=== PATIENT | female | born 1990 | race American Indian/Alaskan Native ===

== ENCOUNTER 2021-01-11 10:52 | Inpatient (IN) | payer BC ==
[2021-01-11] MEDS ORDERED: LACTATED RINGERS 1,000 ML IV SCH ×2 (11:45→12:45)
[2021-01-11] MEDS ORDERED: ACETAMINOPHEN 500 MG TAB PO ONE (11:48)
[2021-01-11 12:14] LABS: Basophils % (Auto) 0.4 % (0.0-1.8); Eosinophils # (Auto) 0.1 K/mm3 (0.0-0.4); Eosinophils % (Auto) 0.6 % (0.0-4.3); Hematocrit 33.9 % (30.3-42.9); Hemoglobin 11.2 gm/dl (10.1-14.3); Lymphocytes # (Auto) 1.9 K/mm3 (1.2-5.4); Lymphocytes % (Auto) 20.5 % (13.4-35.0); Mean Corpuscular HGB Conc 33 % (30-34); Mean Corpuscular Volume 80 fl (79-97); Monocytes % (Auto) 11.5 % (0.0-7.3); Platelet Count 391 K/mm3 (140-440); Red Blood Count 4.23 M/mm3 (3.65-5.03); Red Cell Distribution Width 15.7 % (13.2-15.2)
[2021-01-11] MEDS ORDERED: METHYLERGONOVINE MALEATE 0.2 MG/ML VIAL IM PRN (12:32)
[2021-01-11] MEDS ORDERED: OXYTOCIN 10 UNIT/1 ML INJ IM PRN (12:32)
[2021-01-11] MEDS ORDERED: MINERAL OIL 30 ML ORAL LIQD PO PRN (12:32)
[2021-01-11] MEDS ORDERED: LOPERAMIDE 2 MG CAP PO PRN (12:32)
[2021-01-11] MEDS ORDERED: ePHEDrine SULFATE 50 MG/1 ML INJ IV PRN ×2 (12:32→16:30)
[2021-01-11] MEDS ORDERED: NALOXONE 0.4 MG/1 ML INJ IV PRN ×2 (12:32→18:42)
[2021-01-11] MEDS ORDERED: LIDOCAINE (2%) 20 MG/1 ML VIAL 20 ML MDV INFILTRATI ONE (12:32)
[2021-01-11] MEDS ORDERED: TERBUTALINE 1 MG/1 ML INJ SUB-Q PRN (12:32)
[2021-01-11] MEDS ORDERED: fentaNYL 100 MCG/2 ML INJ IV PRN (12:32)
[2021-01-11] MEDS ORDERED: CARBOPROST TROMETHAMINE 250 MCG/1 ML INJ IM PRN (12:32)
[2021-01-11] MEDS ORDERED: ACETAMINOPHEN 325 MG TAB PO PRN (12:32)
[2021-01-11] MEDS ORDERED: PROMETHAZINE 25 MG TAB PO PRN (12:32)
[2021-01-11 12:45] LABS: Uric Acid 5.3 mg/dL (3.5-7.6)
[2021-01-11] MEDS ORDERED: ACETAMINOPHEN 500 MG TAB PO PRN (12:48)
[2021-01-11 12:53] LABS: Alanine Aminotransferase < 5 units/L (7-56)
--- NOTE | 2021-01-11 12:53 | History and Physical Report ---
History of Present Illness Date of examination: 01/11/21 (Contractions) Date of admission: 01/11/2021 Chief complaint: Contractions that started 2 hours ago, now elevated blood pressures. History of present illness: Pt presented to triage with c/o ctxs. Her cervical exam was 2/80/-2. She was noted to also have elevated blood pressures. The highest blood pressure in triage being 184/97. EDC Confirmation: 01/12/2021 Gestational Age: 39.6 wks on admission Past History : 2 Term Births: 0 Premature Births: 0 Living Children: 0 Para: 0 Mult. Births: 0 Prev : 0 Prev. attempt? 0 Aborta: 1 Elect. Ab: 1 Spont. 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 Past Surgical History Abnormal PAP: negative Family Hx: Htn- mother thyroid dx - mother Social Hx: Single Works for [employer] Infection History HIV Risk Eval: no Genetic History Congenital Heart Defect: Mom: no Dad: no Little Disease: Mom: no Dad: no Thalassemia Mom: no Dad: no Neural Tube Defect Mom: no Dad: no Down's Syndrome Mom: no Dad: no Rod-Sachs Mom: yes Dad: unknown Comments: FOC has not been tested Sickle Cell Disease/Trait Mom: yes Dad: unknown Comments: FOC has not been tested Hemophilia Mom: no Dad: no Muscular Dystrophy Mom: no Dad: no Cystic Fibrosis Mom: no Dad: no Lares Chorea Mom: no Dad: no Mental Retardation Mom: no Dad: no Fragile X Mom: no Dad: no Other Genetic/Chromosomal Disorder Mom: no Dad: no Child w/other defect Mom: no Dad: no Enviromental Exposures Xray Exposure: no Medication, drug, or alcohol use since LMP: no Chemical/Other Exposure: no Exposure to Cat Liter: no Hx of Parvovirus (Fifth Disease): no Occupational Exposure to Children: none Current Allergies: No known allergies Past History Past Medical History: other (Bipolar, sickle cell disease/trait) Past Surgical History: no surgical history Family/Genetic History: hypertension Social history: no significant social history - Obstetrical History Expected Date of Delivery: 01/12/21 Actual Gestation: 40 Week(s) 0 Day(s) : 2 Para: 0 Hx # Term Pregnancies: 0 Number of Pregnancies: 0 Spontaneous Abortions: 0 Induced : 1 Number of Living Children: 0 Medications and Allergies Allergies Allergy/AdvReac Type Severity Reaction Status Date / Time No Known Allergies Allergy Unverified 01/11/21 12:03 Home Medications Medication Instructions Recorded Confirmed Last Taken Type Docusate Sodium [Colace] 100 mg PO BID PRN #60 capsule 01/11/21 Unknown Rx Ferrous Sulfate [Feosol 325 MG tab] 325 mg PO QDAY #60 tablet 01/11/21 Unknown Rx Ibuprofen [Motrin 800 MG tab] 800 mg PO Q8HR PRN #30 tablet 01/11/21 Unknown Rx Lidocain2.5%/Prilocai2.5% [Emla] 2 gm TP ONCE #1 tube 01/11/21 Unknown Rx oxyCODONE /ACETAMINOPHEN [Percocet 1 tab PO Q4HR #30 tab 01/11/21 Unknown Rx 5/325] Active Meds: Active Medications Acetaminophen (Acetaminophen 500 Mg Tab) 1,000 mg PO Q6H PRN PRN Reason: Pain, Mild (1-3) Carboprost Tromethamine (Carboprost Tromethamine 250 Mcg/1 Ml Inj) 250 mcg IM ONCE PRN PRN Reason: Uterine Bleeding Ephedrine Sulfate (Ephedrine Sulfate 50 Mg/1 Ml Inj) 10 mg IV Q2M PRN PRN Reason: Hypotension Fentanyl (Fentanyl 100 Mcg/2 Ml Inj) 100 mcg IV Q2H PRN PRN Reason: Pain,Severe (7-10) LABOR PAIN Lactated Ringer's (Lactated Ringers) 1,000 mls @ 150 mls/hr IV DIRECT [place] Last Admin: 01/11/21 12:13 Dose: 150 mls/hr Documented by: Lactated Ringer's (Lactated Ringers) 1,000 mls @ 125 mls/hr IV DIRECT [place] Oxytocin/Sodium Chloride (Pitocin/Ns 30 Unit/500ml) 30 units in 500 mls @ 2 mls/hr IV TITR [place]; Protocol Oxytocin/Sodium Chloride (Pitocin/Ns 30 Unit/500ml) 30 units in 500 mls @ 40 mls/hr IV TITR [place]; Protocol Loperamide HCl (Loperamide 2 Mg Cap) 2 mg PO ONCE PRN PRN Reason: give with Hemabate Methylergonovine Maleate (Methylergonovine Maleate 0.2 Mg/Ml Vial) 0.2 mg IM ONCE PRN PRN Reason: Uterine Bleeding Mineral Oil (Mineral Oil 30 Ml Oral Liqd) 30 ml PO QHS PRN PRN Reason: Constipation Naloxone HCl (Naloxone 0.4 Mg/1 Ml Inj) 0.1 mg IV Q2MIN PRN PRN Reason: Res Rate </= 8 or 02 SAT < 92% Oxytocin (Oxytocin 10 Unit/1 Ml Inj) 10 unit IM ONCE PRN PRN Reason: Uterine Bleeding Promethazine HCl (Promethazine 25 Mg Tab) 25 mg PO Q6H PRN PRN Reason: Nausea And Vomiting Terbutaline Sulfate (Terbutaline 1 Mg/1 Ml Inj) 0.25 mg SUB-Q ONCE PRN PRN Reason: Hyperstimulation/Hypertonicity Review of Systems All systems: negative - Vital Signs Vital signs: Vital Signs Temp Pulse Resp BP 99.2 F 96 H 16 140/88 01/11/21 11:24 01/11/21 11:24 01/11/21 11:24 01/11/21 11:24 Temp Pulse Resp BP Pulse Ox 99.2 F 93 H 16 184/97 01/11/21 11:24 01/11/21 12:27 01/11/21 11:24 01/11/21 12:27 Pt denies MCCARTNEY, blurred vision, spots before her eyes, chest pain, shortness of breath, and upper abdominal pain. - Physical Exam Breasts: Positive: deferred Cardiovascular: Regular rate Lungs: Positive: Normal air movement Abdomen: Positive: normal appearance, soft Genitourinary (Female): Positive: normal external genitalia, normal perenium Vulva: both: normal Vagina: Positive: normal moisture Uterus: Positive: normal size Extremities: Positive: edema (Trace edema) Deep Tendon Reflex Grade: Normal +2 - Obstetrical FHR: category 1 Uterine Contraction Monitor Mode: External Cervical Dilatation: 2 Cervical Effacement Percentage: 80 station: -2 Uterine Contraction Pattern: Regular Uterine Tone Measurement Phase: Resting Uterine Contraction Intensity: Moderate Results Result Diagrams: 01/11/21 Unknown 01/11/21 Unknown Abnormal lab results 01/11/21 01/11/21 Range/Units Unknown Unknown MCH 27 L (28-32) pg RDW 15.7 H (13.2-15.2) % Converse % (Auto) 11.5 H (0.0-7.3) % Converse # (Auto) 1.0 H (0.0-0.8) K/mm3 Lactate Dehydrogenase 192 H (91-180) units/L All other labs normal. GBS POSITIVE RPR NR Rubella IMMUNE Hep B NR A Positive, antibody screen negative HIV NR Assessment and Plan A: 30 y.o. @ 39.6 wks with ctxs with gHTN, blood pressure ranges are 140-180' s/80's. Cervical exam /-. - Patient Problems (1) with 39 completed weeks gestation Current Visit: Yes Status: Acute Plan to address problem: Continue to monitor status through EFM. (2) Gestational hypertension without significant proteinuria during in third trimester, antepartum Current Visit: Yes Status: Acute Plan to address problem: Consulted with Dr. Mejia, will admit to labor and delivery. Initiate IV. Draw pre eclampsia labs. Start IOL with Pitocin per protocol. Monitor for s/sx of pre eclampsia, and worsening maternal and status. IV blood pressure medications as needed.
[2021-01-11] MEDS ORDERED: MAGNESIUM SULFATE 4 GM/100 ML BAG IV ONE (13:00)
[2021-01-11] MEDS ORDERED: OXYTOCIN DRIP 30 UNITS/500 ML BAG IV SCH ×2 (13:00)
[2021-01-11] MEDS ORDERED: CALCIUM GLUCONATE 1000 MG/10 ML INJ IV PRN (13:30)
[2021-01-11] MEDS ORDERED: hydrALAZINE 20 MG/1 ML INJ IV ONE (13:40)
--- NOTE | 2021-01-11 16:03 | Anesthesia Consultation ---
Anesthesia Consult and Med Hx Date of service: 01/11/21 - Airway Anesthetic Teeth Evaluation: Good ROM Head & Neck: Adequate Mental/Hyoid Distance: Adequate Mallampati Class: Class II Intubation Access Assessment: Probably Good - Pulmonary Exam CTA: Yes - Cardiac Exam Cardiac Exam: RRR - Pre-Operative Health Status ASA Pre-Surgery Classification: ASA3 Proposed Anesthetic Plan: Epidural - Pulmonary Hx Asthma: Yes - Cardiovascular System Hx Hypertension: Yes - Central Nervous System Hx Seizures: No Hx Psychiatric Problems: Yes (BIPOLAR TYPE 1) - Endocrine Hx Renal Disease: No Hx Hypothyroidism: No Hx Hyperthyroidism: No - Hematic Hx Anemia: No Hx Sickle Cell Disease: No - Other Systems Hx Alcohol Use: No Hx Obesity: Yes
[2021-01-11] MEDS ORDERED: NALOXONE 2 MG/2 ML INJ IV PRN (16:30)
[2021-01-11] MEDS ORDERED: hydrALAZINE 20 MG/1 ML INJ IV SCH (16:30)
[2021-01-11] MEDS ORDERED: fentaNYL-BUPIV 2 MCG/ML-0.125% 200 MCG/100 ML BAG EPIDURAL SCH (16:30)
--- NOTE | 2021-01-11 16:34 | Progress Note ---
Labor Epidural - Labor Epidural Start Time: 16:19 Stop Time: 16:27 Performed by:: ZHOU BEAL Procedure: Patient is requesting epidural for labor pain. H&P, and labs reviewed. Procedure explained, questions answered, consent obtained. Patient in sitting position with blood pressure cuff and pulse ox on and working. Timeout performed immediately before start of procedure. Sterile chlorahexadine 0.5% prep/drape. 3 mL 1% lidocaine skin wheal at L[3]-L[4]. 18-gauge License Acquisitionstead epidural needle advanced to [id number] with saline at [7] cm. Epidural catheter advanced to [12] cm, negative aspiration for blood and csf, negative test dose 3 ml 1.5% lidocaine with epinephrine. Epidural dexmedetomidine [30] mcg administered. Sterile steri-strips and tegaderm applied, followed by tape reinforcement. Patient tolerated procedure well. Bipin DIAZ
--- NOTE | 2021-01-11 17:02 | Progress Note ---
Assessment and Plan A: 30 y.o. @ 39.6 wks IOL d/t pre eclampsia. Cervical exam /2. AROM clear fluid. - Patient Problems (1) with 39 completed weeks gestation Current Visit: Yes Status: Acute Plan to address problem: Continue to monitor status through EFM. (2) Pre-eclampsia, mild to moderate, third trimester Onset Date: ~01/11/21 Current Visit: Yes Status: Acute Plan to address problem: Continue with IOL at this time. Increase Pitocin per protocol. Continue to monitor for s/sx of worsening pre eclampsia. Subjective - Subjective Date of service: 01/11/21 (Comfortable with epidural. ) Principal diagnosis: IUP @ 39.6 wks, pre eclampsia, magnesium infusion. Patient reports: movement normal, no new complaints, no loss of fluid, no vaginal bleeding, no contractions Objective - Vital Signs Vital Signs: Vital Signs - 12hr 01/11/21 01/11/21 01/11/21 11:24 11:25 11:39 Temperature 99.2 F Pulse Rate 96 H 96 H 102 H Respiratory 16 Rate Blood Pressure 140/88 149/101 Blood Pressure 140/88 [Left] O2 Sat by Pulse Oximetry 01/11/21 01/11/21 01/11/21 11:57 12:11 12:27 Temperature Pulse Rate 97 H 84 93 H Respiratory Rate Blood Pressure 135/86 142/91 184/97 Blood Pressure [Left] O2 Sat by Pulse Oximetry 01/11/21 01/11/21 01/11/21 13:31 13:47 13:52 Temperature Pulse Rate 112 H 107 H 109 H Respiratory Rate Blood Pressure 165/94 Blood Pressure [Left] O2 Sat by Pulse 99 100 Oximetry 01/11/21 01/11/21 01/11/21 13:57 14:02 14:07 Temperature Pulse Rate 114 H 107 H 104 H Respiratory Rate Blood Pressure Blood Pressure [Left] O2 Sat by Pulse 99 98 98 Oximetry 01/11/21 01/11/21 01/11/21 14:12 14:17 14:22 Temperature Pulse Rate 107 H 109 H 112 H Respiratory Rate Blood Pressure Blood Pressure [Left] O2 Sat by Pulse 99 98 99 Oximetry 01/11/21 01/11/21 01/11/21 14:24 14:27 14:32 Temperature Pulse Rate 107 H 117 H 114 H Respiratory Rate Blood Pressure 139/97 Blood Pressure [Left] O2 Sat by Pulse 99 98 Oximetry 01/11/21 01/11/21 01/11/21 14:37 14:42 14:47 Temperature Pulse Rate 106 H 109 H 111 H Respiratory Rate Blood Pressure Blood Pressure [Left] O2 Sat by Pulse 98 97 98 Oximetry 01/11/21 01/11/21 01/11/21 14:52 14:55 14:57 Temperature Pulse Rate 111 H 114 H 111 H Respiratory Rate Blood Pressure 182/102 Blood Pressure [Left] O2 Sat by Pulse 98 98 Oximetry 01/11/21 01/11/21 01/11/21 15:02 15:07 15:12 Temperature Pulse Rate 110 H 113 H 107 H Respiratory Rate Blood Pressure Blood Pressure [Left] O2 Sat by Pulse 98 96 97 Oximetry 01/11/21 01/11/21 01/11/21 15:17 15:22 15:25 Temperature Pulse Rate 110 H 113 H 108 H Respiratory Rate Blood Pressure 161/87 Blood Pressure [Left] O2 Sat by Pulse 99 99 Oximetry 01/11/21 01/11/21 01/11/21 15:27 15:32 15:37 Temperature Pulse Rate 111 H 111 H 111 H Respiratory Rate Blood Pressure Blood Pressure [Left] O2 Sat by Pulse 99 98 98 Oximetry 01/11/21 01/11/21 01/11/21 15:42 15:47 15:51 Temperature Pulse Rate 108 H 120 H 115 H Respiratory Rate Blood Pressure 157/101 Blood Pressure [Left] O2 Sat by Pulse 96 99 Oximetry 01/11/21 01/11/21 01/11/21 15:52 15:54 15:57 Temperature Pulse Rate 115 H 116 H 115 H Respiratory Rate Blood Pressure 147/89 Blood Pressure [Left] O2 Sat by Pulse 100 98 Oximetry 01/11/21 01/11/21 01/11/21 16:02 16:07 16:12 Temperature Pulse Rate 114 H 113 H 117 H Respiratory Rate Blood Pressure 163/89 Blood Pressure [Left] O2 Sat by Pulse 99 97 98 Oximetry 01/11/21 01/11/21 01/11/21 16:17 16:22 16:23 Temperature Pulse Rate 121 H 114 H 116 H Respiratory Rate Blood Pressure 169/95 Blood Pressure [Left] O2 Sat by Pulse 98 98 Oximetry 01/11/21 01/11/2101/11/21 16:26 16:27 16:29 Temperature Pulse Rate 112 H 111 H 113 H Respiratory Rate Blood Pressure 167/94 174/97 Blood Pressure [Left] O2 Sat by Pulse 98 Oximetry 01/11/21 01/11/21 01/11/21 16:32 16:34 16:35 Temperature Pulse Rate 117 H 116 H 118 H Respiratory Rate Blood Pressure 188/88 186/78 Blood Pressure [Left] O2 Sat by Pulse 99 Oximetry 01/11/21 01/11/21 01/11/21 16:37 16:39 16:42 Temperature Pulse Rate 119 H 122 H 118 H Respiratory Rate Blood Pressure 175/79 172/74 Blood Pressure [Left] O2 Sat by Pulse 99 98 Oximetry 01/11/21 01/11/21 01/11/21 16:45 16:47 16:50 Temperature Pulse Rate 122 H 118 H 122 H Respiratory Rate Blood Pressure 179/75 166/80 168/73 Blood Pressure [Left] O2 Sat by Pulse 99 Oximetry 01/11/21 01/11/21 16:52 16:53 Temperature Pulse Rate 120 H 120 H Respiratory Rate Blood Pressure 164/71 Blood Pressure [Left] O2 Sat by Pulse 99 Oximetry - Exam Narrative Exam: Pt continues to deny MCCARTNEY, blurred vision, spots before her eyes, chest pain, shortness of breath, and upper abdominal pain. Breasts: deferred Cardiovascular: Regular rate Lungs: Normal air movement Abdomen: Present: normal appearance, soft Vulva: both: normal Uterus: Present: normal FHR: category 1 (With some periods of minimal varibility and category 2. ) Uterine Contraction Monitor Mode: External Cervical Dilatation: 6 (AROM, clear fluid) Cervical Effacement Percentage: 90 station: -2 Uterine Contraction Pattern: Regular Uterine Contraction Intensity: Moderate Deep Tendon Reflex Grade: Normal +2 (Pt comfortable with epidural.) - Labs Labs: Abnormal Labs 01/11/21 01/11/21 01/11/21 14:55 Unknown Unknown MCH 27 L RDW 15.7 H Wright % (Auto) 11.5 H Wright # (Auto) 1.0 H Creatinine 0.5 L Magnesium 3.20 H ALT < 5 L Lactate Dehydrogenase 192 H Laboratory Results - last 24 hr 01/11/21 01/11/21 01/11/21 12:28 12:28 14:55 WBC RBC Hgb Hct MCV MCH MCHC RDW Plt Count Lymph % (Auto) Wright % (Auto) Eos % (Auto) Baso % (Auto) Lymph # (Auto) Wright # (Auto) Eos # (Auto) Baso # (Auto) Seg Neutrophils % Seg Neutrophils # Creatinine Estimated GFR Uric Acid Magnesium 3.20 H AST ALT Lactate Dehydrogenase Syphilis IgG Antibody Nonreactive Blood Type A POSITIVE Antibody Screen Negative 01/11/21 01/11/21 Unknown Unknown WBC 9.0 RBC 4.23 Hgb 11.2 Hct 33.9 MCV 80 MCH 27 L MCHC 33 RDW 15.7 H Plt Count 391 Lymph % (Auto) 20.5 Wright % (Auto) 11.5 H Eos % (Auto) 0.6 Baso % (Auto) 0.4 Lymph # (Auto) 1.9 Wright # (Auto) 1.0 H Eos # (Auto) 0.1 Baso # (Auto) 0.0 Seg Neutrophils % 67.0 Seg Neutrophils # 6.0 Creatinine 0.5 L Estimated GFR > 60 Uric Acid 5.3 Magnesium AST 18 ALT < 5 L Lactate Dehydrogenase 192 H Syphilis IgG Antibody Blood Type Antibody Screen
[2021-01-11] MEDS ORDERED: METOCLOPRAMIDE 10 MG/2 ML INJ IV ONE (17:38)
[2021-01-11] MEDS ORDERED: BICITRA ORAL LIQD 30ML PO ONE (17:38)
[2021-01-11] MEDS ORDERED: FAMOTIDINE 20 MG/2 ML INJ IV ONE (17:38)
--- NOTE | 2021-01-11 17:40 | Event Note ---
Date: 01/11/21 (Variable decelerations) Was in room with RN when multiple variable decelerations into the 70's were noted. There would be a return to baseline to the 150's. FSE and IUPC were placed. Pitocin was discontinued. O2 per non rebreather placed and patient turned to left side. Multiple variable decelerations into the 70's continued despite resuscitation interventions. After 8 minutes of multiple variable decelerations, heart rate returned to baseline of 150's with minimal variability noted. Dr. Mejia called and updated on patient status. Informed patient that a would be needed at this time. Consents signed and on chart. pre op meds ordered. RN prepping patient for . Also of note, pt with blood pressures consistently of 160-170's/80's while in room for patient assessment. Hydralazine 10mg IV given X 1 with a blood pressure decrease to 142/65.
[2021-01-11] MEDS ORDERED: ceFAZolin/Water 2 GM/20 ML 2 GM/20 ML SYRINGE IV NR (18:00)
[2021-01-11] MEDS ORDERED: KETOROLAC 30 MG/1 ML INJ ONE (18:30)
[2021-01-11] MEDS ORDERED: LIDOCAINE 2%/EPINEPHRINE 1:200,000 VIAL (20 ML) INFILTRATI ONE (18:35)
[2021-01-11] MEDS ORDERED: dexAMETHasone 20 MG/5 ML VIAL ONE (18:35)
[2021-01-11] MEDS ORDERED: BUPIVACAINE/PF (0.5%) 5 MG/1 ML 30 ML VIAL INFILTRATI ONE (18:35)
[2021-01-11] MEDS ORDERED: ONDANSETRON 4 MG/2 ML INJ ONE (18:35)
[2021-01-11] MEDS ORDERED: PHENYLEPHRINE/NS 1,000 MCG/10 ML SYRINGE (OR USE) IV ONE (18:35)
[2021-01-11] MEDS ORDERED: LACTATED RINGERS 1,000 ML ONE (18:35)
[2021-01-11] MEDS ORDERED: HYDROcodone/ACETAMINOPHEN 5-325 MG TAB PO PRN (18:42)
[2021-01-11] MEDS ORDERED: WITCH HAZEL/ GLYCERIN PAD TP PRN (18:42)
[2021-01-11] MEDS ORDERED: LANOLIN/ZINC/DIMETHICONE (LANSINOH) 7 GM TP PRN (18:42)
--- NOTE | 2021-01-11 18:42 | Operative Report ---
Operative Report Operative Report: Date of procedure: 01/11/2021 Pre-operative diagnosis: 39 weeks gestation Maternal obesity Gestational hypertension with severe features Category 3 tracing Remote from delivery Post-operative diagnosis: Same plus possible placental abruption. Body cord x1 Uterine atony Procedure name(s): Stat primary low transverse section via Pfannenstiel skin incision Vacuum assisted delivery Surgeon: Dr. Mejia Education Nurse: Serena Roman CNM Anesthesia: Combined spinal epidural EBL: 650ML Urine output: 120 mL of clear urine out at the end the procedure Fluids: 1650 mL Findings: Liveborn male infant weight 8 pounds 0 ounces Apgars of 8 and 9 at 1 and 5 minutes What appeared to be placental abruption with large clots removed with delivery of the placenta Grossly normal fallopian tubes and ovaries bilaterally Terminal meconium Indications: Patient was admitted for induction of labor secondary to having elevated blood pressures. Patient progressed approximately 6 to 7 cm when she was noted to have persistent deep variable decelerations to the 70s to 80s. Patient was noted to have deceleration to the 50s that did not respond with resuscitative measures. Decision was made at this time to proceed to the operating room for stat section. All risk benefits and alternatives were discussed with the patient. Consents were signed and placed on the chart. Procedure: Patient was taking to the operating room. Patient was then prepped and draped in sterile fashion after anesthesia was found to be adequate. A low transverse skin incision was made with the scalpel and carried down to the underlying layer of fascia with the Bovie. The fascia was then incised in the midline and this incision was extended bilaterally with the scalpel. The rectus muscles were then bluntly divided in the midline. The peritoneum was identified and entered into bluntly. The bladder blade was placed. A lower transverse uterine incision was made with the scalpel and extended bilaterally with the bandage blunt dissection. Entry into the uterus yielded clear amniotic fluid. The Kiwi vacuum was applied with 1 application with care not to place over the anterior fontanelle. The 's head was then delivered atraumatically. The anterior shoulder and rest of infant delivered without difficulty. The umbilical cord was clamped x2. The cord was cut. The infant was then placed in sterile bassinet. [The cord blood was collected.] The placenta was manually extracted in its entirety. The uterus was exteriorized and cleared of all clots and debris. The uterine incision was closed using 0 Vicryl in a running locking fashion. A second imbricating layer of the same suture was then created. Patient was noted to have uterine atony that was relieved with uterine massage and Pitocin infusion. The posterior cul-de-sac was copiously irrigated. The uterus was returned to the abdomen. The gutters were also irrigated. Heema blast was placed along the uterine incision with excellent hemostasis noted. The anterior rectus muscles were reapproximated u sing 3-0 Vicryl. The anterior rectus fascia was reapproximated using 0 Vicryl in a running fashion. The subcuticular fat was reapproximated using 2-0 Vicryl in a running fashion. The skin was reapproximated with 4-0 Monocryl in a subcuticular stitch. The patient tolerated the procedure well. Sponge lap and needle counts were all correct x3. Patient was taken to the recovery room awake and in stable condition.
--- NOTE | 2021-01-11 19:19 | Progress Note ---
Regional Anesthesia Block - Regional Anesthesia Block Start Time: 18:55 Stop Time: 19:00 Performed By:: ZHOU BEAL Procedure: U/S guided bilateral tap block performed for post-operative pain requested by Dr. Mejia. H&P & labs reviewed. Procedure explained, questions answered, consent obtained. Patient in the supine position with ekg, blood pressure cuff and pulse ox on and working in PACU. Timeout performed immediately before start of procedure. Probe placed in the mid-axillary line and the external oblique, internal oblique, and transverse abdominus muscles identified. Skin was cleansed with chlorahexadine 0.5% and allowed to dry. A 4" 20 G Fonseca echogenic needle was advanced in plane until the tip was in the fascial plane between the internal oblique and the transverse abdominus. After negative aspiration 35 ml/side of [30 ml 0.5% Bupivacaine], [10 mg dexamethasone], and [40 ml sterile saline] was injected in 5 ml increments with negative aspiration in between. Patient tolerated procedure well. Bipin DIAZ
[2021-01-11] MEDS: MAGNESIUM SULFATE 40GM/1000ML 40 GM/1,000 ML BAG IV SCH (19:30)
[2021-01-11] MEDS: KETOROLAC 30 MG/1 ML INJ IV PRN (21:03)
[2021-01-11] MEDS: HYDROcodone/ACETAMINOPHEN 5-325 MG TAB PO PRN (22:47)
[2021-01-12 01:34] LABS: Bacteria,Urine 1+ /HPF (Negative); Bilirubin,Urine NEG (Negative); Blood,Urine NEG (Negative); Color,Urine Straw (Yellow); Protein,Urine <15 mg/dL mg/dL (Negative); RBC,Urine < 1.0 /HPF (0.0-6.0); Urobilinogen,Urine < 2.0 mg/dL (<2.0)
[2021-01-12] MEDS: ceFAZolin/NS 1 GM/50 ML 1 GM/50 ML BAG IV SCH ×2 (02:00→10:05)
[2021-01-12] MEDS: MAGNESIUM SULFATE 40GM/1000ML 40 GM/1,000 ML BAG IV SCH (04:23)
[2021-01-12] MEDS ORDERED: TETANUS,DIPH,PERTUSS(ACELL) VACCINE 0.5 ML SYRINGE IM ONE (06:00)
[2021-01-12 07:13] LABS: Hematocrit 32.4 % (30.3-42.9); Hemoglobin 10.5 gm/dl (10.1-14.3)
[2021-01-12] MEDS: HYDROcodone/ACETAMINOPHEN 5-325 MG TAB PO PRN ×3 (07:20→20:32)
--- NOTE | 2021-01-12 07:31 | Progress Note ---
Assessment and Plan Pt A&O X 3 C/O incisional pain but states she gets relief with pain meds. BP 150-130/80-70 Denies MCCARTNEY, blurred vision, chest pain. FF below umb Lochia small MGSO4 @ 2gm/hr Stable s/p c/s PreE P: continue pathway Adv as tolerated Transfer to [facility] after 1930 when MGSO4 has completed. Subjective - Subjective Date of service: 01/12/21 (pt in good spirits; c/o incisional pain) Principal diagnosis: Day #1 s/p section; PreE MGSO4 X 24hr Patient reports: appetite normal (liquids), voiding normally (yellow urine to BSB) : in NICU Objective - Vital Signs Latest vital signs: Vital Signs Temp Pulse Resp BP BP Pulse Ox 01/12/21 07:24 105 H 99 01/12/21 07:19 105 H 98 01/12/21 07:17 106 H 149/80 01/12/21 07:14 109 H 98 01/12/21 07:09 104 H 98 01/12/21 07:04 107 H 98 01/12/21 06:59 108 H 97 01/12/21 06:54 110 H 98 01/12/21 06:49 106 H 98 01/12/21 06:47 106 H 148/82 01/12/21 06:44 104 H 98 01/12/21 06:39 105 H 98 01/12/21 06:34 102 H 99 01/12/21 06:29 103 H 98 01/12/21 06:24 105 H 97 01/12/21 06:19 107 H 98 01/12/21 06:17 107 H 143/82 01/12/21 06:14 109 H 97 01/12/21 06:09 107 H 97 01/12/21 06:04 101 H 97 01/12/21 05:59 102 H 97 01/12/21 05:54 105 H 98 01/12/21 05:49 105 H 99 01/12/21 05:47 105 H 147/85 01/12/21 05:44 105 H 98 01/12/21 05:39 101 H 99 01/12/21 05:34 107 H 98 01/12/21 05:29 103 H 98 01/12/21 05:24 108 H 98 01/12/21 05:19 103 H 98 06/12/21 05:17 107 H 144/77 01/12/21 05:14 106 H 98 01/12/21 05:09 105 H 99 01/12/21 05:04 111 H 98 01/12/21 04:59 106 H 98 01/12/21 04:54 106 H 98 01/12/21 04:49 106 H 98 01/12/21 04:47 103 H 144/84 01/12/21 04:44 103 H 98 01/12/21 04:39 103 H 98 01/12/21 04:34 104 H 98 01/12/21 04:29 102 H 99 01/12/21 04:24 107 H 98 01/12/21 04:19 105 H 99 01/12/21 04:17 100 H 158/82 01/12/21 04:14 104 H 99 01/12/21 04:09 104 H 98 01/12/21 04:04 105 H 99 01/12/21 03:59 104 H 99 01/12/21 03:54 105 H 98 01/12/21 03:49 104 H 98 01/12/21 03:47 100 H 143/84 01/12/21 03:44 103 H 97 01/12/21 03:39 103 H 99 01/12/21 03:34 102 H 98 01/12/21 03:29 103 H 98 01/12/21 03:24 101 H 98 01/12/21 03:19 105 H 97 01/12/21 03:17 102 H 146/88 01/12/21 03:14 103 H 98 01/12/21 03:09 104 H 98 01/12/21 03:04 101 H 97 01/12/21 02:59 103 H 98 01/12/21 02:54 101 H 97 01/12/21 02:49 101 H 97 01/12/21 02:47 99 H 138/80 01/12/21 02:44 102 H 97 01/12/21 02:41 98 H 94 01/12/21 02:39 98 H 97 01/12/21 02:34 101 H 97 01/12/21 02:29 99 H 98 01/12/21 02:24 99 H 98 01/12/21 02:19 101 H 97 01/12/21 02:17 102 H 138/80 0621 02:14 99 H 97 01/12/21 02:09 100 H 97 01/12/21 02:04 100 H 97 01/12/21 01:59 100 H 97 01/12/21 01:54 100 H 98 01/12/21 01:49 100 H 98 01/12/21 01:47 100 H 135/82 01/12/21 01:44 101 H 98 01/12/21 01:39 102 H 98 01/12/21 01:34 102 H 98 01/12/21 01:29 100 H 98 01/12/21 01:24 101 H 98 01/12/21 01:19 101 H 98 01/12/21 01:17 102 H 140/86 01/12/21 01:14 103 H 99 01/12/21 01:09 104 H 99 01/12/21 01:04 106 H 99 01/12/21 00:59 104 H 100 01/12/21 00:54 104 H 100 01/12/21 00:49 105 H 99 01/12/21 00:47 111 H 151/81 01/12/21 00:44 107 H 99 01/12/21 00:39 108 H 98 01/12/21 00:34 109 H 99 01/12/21 00:33 106 H 151/81 01/12/21 00:29 109 H 98 01/12/21 00:24 110 H 97 01/12/21 00:19 109 H 99 01/12/21 00:17 107 H 163/85 01/12/21 00:14 109 H 98 01/12/21 00:09 111 H 100 01/12/21 00:04 111 H 98 01/12/21 00:02 108 H 157/85 01/11/21 23:59 110 H 98 01/11/21 23:54 108 H 98 01/11/21 23:49 114 H 99 01/11/21 23:47 113 H 18 150/78 01/11/21 23:44 119 H 99 01/11/21 23:39 106 H 99 01/11/21 23:34 108 H 99 01/11/21 23:32 108 H 160/81 01/11/21 23:29 112 H 98 01/11/21 23:24 109 H 99 01/11/21 23:19 114 H 98 01/11/21 23:17 113 H 148/76 01/11/21 23:14 112 H 99 01/11/21 23:09 112 H 100 01/11/21 23:04 109 H 98 01/11/21 23:02 109 H 158/86 01/11/21 22:59 108 H 99 01/11/21 22:54 110 H 99 01/11/21 22:49 111 H 100 01/11/21 22:47 111 H 18 157/83 01/11/21 22:44 109 H 99 01/11/21 22:39 108 H 99 01/11/21 22:34 114 H 99 01/11/21 22:33 106 H 158/89 01/11/21 22:29 112 H 99 01/11/21 22:24 111 H 98 01/11/21 22:19 109 H 99 01/11/21 22:17 108 H 160/88 01/11/21 22:14 107 H 99 01/11/21 22:09 107 H 99 01/11/21 22:04 110 H 98 01/11/21 22:02 110 H 153/90 01/11/21 21:59 109 H 100 01/11/21 21:54 110 H 99 01/11/21 21:49 107 H 99 01/11/21 21:47 104 H 147/92 01/11/21 21:44 110 H 99 01/11/21 21:39 114 H 99 01/11/21 21:34 108 H 100 01/11/21 21:33 18 01/11/21 21:32 106 H 141/88 01/11/21 21:29 113 H 100 01/11/21 21:24 103 H 100 01/11/21 21:19 104 H 100 01/11/21 21:17 102 H 139/85 01/11/21 21:14 105 H 99 01/11/21 21:09 102 H 100 01/11/21 21:06 97.5 F L 106 H 18 136/81 99 01/11/21 21:04 103 H 100 01/11/21 21:03 18 01/11/21 21:02 103 H 136/81 01/11/21 20:59 106 H 99 01/11/21 20:54 112 H 99 01/11/21 20:49 108 H 99 01/11/21 20:48 110 H 138/81 01/11/21 20:44 108 H 98 01/11/21 20:00 104 H 11 L 114/53 99 01/11/21 19:40 104 H 11 L 114/53 99 01/11/21 19:25 102 H 13 115/56 100 01/11/21 19:10 99 H 8 L 106/44 100 01/11/21 19:05 94 H 20 102/42 99 01/11/21 19:00 97.8 F 94 H 20 102/38 99 01/11/21 18:55 98.1 F 94 H 14 104/38 98 01/11/21 18:45 98.1 F 98 H 12 95/38 97 01/11/21 17:52 111 H 99 01/11/21 17:47 120 H 100 01/11/21 17:42 127 H 100 01/11/21 17:40 123 H 142/65 01/11/21 17:37 120 H 100 01/11/21 17:32 113 H 100 01/11/21 17:28 121 H 135/62 01/11/21 17:27 132 H 100 01/11/21 17:25 126 H 154/63 01/11/21 17:22 120 H 99 01/11/21 17:17 123 H 99 01/11/21 17:12 129 H 99 01/11/21 17:11 120 H 147/72 01/11/21 17:07 116 H 99 01/11/21 17:05 114 H 172/72 01/11/21 17:02 116 H 98 01/11/21 17:00 115 H 165/72 01/11/21 16:58 115 H 169/73 01/11/21 16:57 117 H 99 01/11/21 16:56 121 H 152/66 01/11/21 16:53 120 H 164/71 01/11/21 16:52 120 H 99 01/11/21 16:50 122 H 168/73 01/11/21 16:47 118 H 166/80 99 01/11/21 16:45 122 H 179/75 01/11/21 16:42 118 H 172/74 98 01/11/21 16:39 122 H 175/79 01/11/21 16:37 119 H 99 01/11/21 16:35 118 H 186/78 01/11/21 16:34 116 H 188/88 01/11/21 16:32 117 H 99 01/11/21 16:29 113 H 174/97 01/11/21 16:27 111 H 98 01/11/21 16:26 112 H 167/94 01/11/21 16:23 116 H 169/95 01/11/21 16:22 114 H 98 01/11/21 16:17 121 H 98 01/11/21 16:12 117 H 163/89 98 01/11/21 16:07 113 H 97 01/11/21 16:02 114 H 99 01/11/21 15:57 115 H 98 01/11/21 15:54 116 H 147/89 01/11/21 15:52 115 H 100 01/11/21 15:51 115 H 157/101 01/11/21 15:47 120 H 99 01/11/21 15:42 108 H 96 01/11/21 15:37 111 H 98 01/11/21 15:32 111 H 98 01/11/21 15:30 18 01/11/21 15:27 111 H 99 01/11/21 15:25 108 H 161/87 01/11/21 15:22 113 H 99 01/11/21 15:17 110 H 99 01/11/21 15:12 107 H 97 01/11/21 15:07 113 H 96 01/11/21 15:02 110 H 98 01/11/21 14:57 111 H 98 01/11/21 14:55 114 H 182/102 01/11/21 14:52 111 H 98 01/11/21 14:47 111 H 98 01/11/21 14:42 109 H 97 01/11/21 14:37 106 H 98 01/11/21 14:32 114 H 98 01/11/21 14:27 117 H 99 01/11/21 14:24 107 H 139/97 01/11/21 14:22 112 H 99 01/11/21 14:17 109 H 98 01/11/21 14:12 107 H 99 01/11/21 14:07 104 H 98 01/11/21 14:02 107 H 98 01/11/21 13:57 114 H 99 01/11/21 13:52 109 H 100 0611/21 13:47 107 H 99 01/11/21 13:31 112 H 165/94 01/11/21 12:27 93 H 184/97 01/11/21 12:11 84 142/91 01/11/21 11:57 97 H 135/86 01/11/21 11:39 102 H 149/101 01/11/21 11:25 96 H 140/88 01/11/21 11:24 99.2 F 96 H 16 140/88 Intake and Output 01/11/21 01/12/21 01/12/21 22:59 06:59 14:59 Intake Total 1555.833 444.167 Output Total 1020 3200 Balance 535.833 -2755.833 Intake: IV 1555.833 444.167 MAGNESIUM SULFATE 40GM/ 444.167 1000ML 40 gm In 1,000 ml @ 2 GM/HR 50 mls/hr IV DIRECT [facility] Rx#:[id number] PITOCin/NS 30 UNIT/500ML 5.833 30 units In 500 ml @ 2 mls/hr IV TITR [place] Rx#: [id number] Output: Urine 1020 3200 Indwelling Catheter 800 3200 Other: Total, Output Amount 800 800 - Exam Breasts: Present: normal Cardiovascular: Present: Regular rate Lungs: Present: Clear to auscultation, Normal air movement, Other (stressed importance of IS) Abdomen: Present: normal appearance, soft Uterus: Present: normal, fundal height below umbilicus Extremities: Present: normal, edema Deep Tendon Reflex Grade: Normal +2 Incision: Present: normal, dry, intact - Labs Labs: Abnormal lab results 01/11/21 01/11/21 01/11/21 Range/Units 14:55 Unknown Unknown MCH 27 L (28-32) pg RDW 15.7 H (13.2-15.2) % [place] % (Auto) 11.5 H (0.0-7.3) % [place] # (Auto) 1.0 H (0.0-0.8) K/mm3 Creatinine 0.5 L (0.6-1.2) mg/dL Magnesium 3.20 H (1.7-2.3) mg/dL ALT < 5 L (7-56) units/L Lactate Dehydrogenase 192 H (91-180) units/L 01/12/21 Range/Units 00:27 MCH (28-32) pg RDW (13.2-15.2) % [place] % (Auto) (0.0-7.3) % [place] # (Auto) (0.0-0.8) K/mm3 Creatinine (0.6-1.2) mg/dL Magnesium 4.50 H (1.7-2.3) mg/dL ALT (7-56) units/L Lactate Dehydrogenase (91-180) units/L
[2021-01-12] MEDS: KETOROLAC 30 MG/1 ML INJ IV PRN ×2 (11:13→18:16)
[2021-01-13] MEDS: HYDROcodone/ACETAMINOPHEN 5-325 MG TAB PO PRN ×4 (05:06→21:40)
--- NOTE | 2021-01-13 07:56 | Progress Note ---
Assessment and Plan - Patient Problems (1) delivery delivered Onset Date: ~01/11/21 Current Visit: Yes Status: Acute Plan to address problem: Pt sitting up in bed No c/o voiced [id number] No c/o MCCARTNEY, blurred vision, chest pain. FF below umb Lochia scant Dressing D&I to be removed now. No s/sx of anemia Doing well s/p c/s and PreE P: continue pathway Continue Labetalol as efrem. Will plan d/c tomorrow Subjective - Subjective Date of service: 01/13/21 (asking to stay another day ) Principal diagnosis: Day #2 s/p section; PreE Patient reports: appetite normal, voiding normally, pain well controlled, ambulating normally : doing well Objective - Vital Signs Latest vital signs: Vital Signs Temp Pulse Resp BP BP Pulse Ox 01/13/21 02:08 98.5 F 107 H 20 127/76 97 01/12/21 21:52 96 H 148/86 01/12/21 21:32 18 01/12/21 21:20 98.2 F 101 H 18 134/90 01/12/21 20:34 85 90 01/12/21 20:32 20 01/12/21 20:29 98 H 99 01/12/21 20:24 101 H 99 01/12/21 20:19 95 H 100 01/12/21 20:17 97 H 147/90 01/12/21 20:14 99 H 100 01/12/21 20:09 94 H 100 01/12/21 20:04 95 H 100 01/12/21 19:59 96 H 100 01/12/21 19:54 94 H 100 01/12/21 19:49 96 H 100 01/12/21 19:47 93 H 137/74 01/12/21 19:44 95 H 100 01/12/21 19:39 96 H 100 01/12/21 19:34 103 H 99 01/12/21 19:30 98.2 F 18 01/12/21 19:29 98 H 100 01/12/21 19:24 99 H 100 01/12/21 19:19 97 H 100 01/12/21 19:17 97 H 141/80 01/12/21 19:14 102 H 100 01/12/21 19:09 94 H 99 01/12/21 19:04 92 H 99 01/12/21 18:59 92 H 99 01/12/21 18:54 93 H 99 01/12/21 18:49 99 H 99 01/12/21 18:47 96 H 152/83 01/12/21 18:46 20 01/12/21 18:44 94 H 99 01/12/21 18:39 97 H 99 01/12/21 18:34 96 H 100 01/12/21 18:29 97 H 99 01/12/21 18:24 101 H 99 01/12/21 18:19 96 H 98 01/12/21 18:17 96 H 138/83 01/12/21 18:14 93 H 98 01/12/21 18:09 94 H 98 01/12/21 18:04 96 H 98 01/12/21 17:59 98 H 99 01/12/21 17:54 98 H 98 01/12/21 17:49 97 H 98 01/12/21 17:47 93 H 136/74 01/12/21 17:44 98 H 100 01/12/21 17:39 97 H 97 01/12/21 17:34 98 H 97 01/12/21 17:29 94 H 97 01/12/21 17:24 97 H 98 01/12/21 17:19 98 H 98 01/12/21 17:17 95 H 134/71 01/12/21 17:14 100 H 98 01/12/21 17:09 96 H 98 01/12/21 17:04 99 H 99 01/12/21 16:59 99 H 97 01/12/21 16:54 100 H 98 01/12/21 16:49 101 H 99 01/12/21 16:47 98.3 F 102 H 16 131/71 131/71 98 01/12/21 16:44 100 H 99 01/12/21 16:39 100 H 98 01/12/21 16:34 99 H 98 01/12/21 16:29 101 H 98 01/12/21 16:24 102 H 98 01/12/21 16:19 101 H 98 01/12/21 16:17 101 H 136/74 01/12/21 16:14 102 H 98 01/12/21 16:09 101 H 98 01/12/21 16:04 100 H 98 01/12/21 15:59 104 H 98 01/12/21 15:54 102 H 98 01/12/21 15:49 98 H 99 01/12/21 15:47 100 H 136/79 01/12/21 15:44 110 H 97 01/12/21 15:39 104 H 98 01/12/21 15:34 105 H 100 01/12/21 15:29 105 H 98 01/12/21 15:24 100 H 99 01/12/21 15:19 102 H 99 01/12/21 15:17 100 H 137/77 01/12/21 15:14 103 H 98 01/12/21 15:09 101 H 98 01/12/21 15:04 99 H 98 01/12/21 14:59 101 H 98 01/12/21 14:54 98 H 98 01/12/21 14:49 104 H 99 01/12/21 14:47 99 H 133/74 01/12/21 14:44 98 H 99 01/12/21 14:39 101 H 97 01/12/21 14:34 96 H 97 01/12/21 14:29 98 H 98 01/12/21 14:24 96 H 98 01/12/21 14:19 96 H 99 01/12/21 14:17 96 H 131/72 01/12/21 14:14 97 H 98 01/12/21 14:09 100 H 99 01/12/21 14:04 101 H 98 01/12/21 13:59 97 H 98 01/12/21 13:54 96 H 98 01/12/21 13:49 97 H 99 01/12/21 13:47 96 H 130/71 01/12/21 13:44 97 H 99 01/12/21 13:39 97 H 98 01/12/21 13:34 99 H 98 01/12/21 13:29 97 H 98 01/12/21 13:24 97 H 98 01/12/21 13:19 98 H 97 01/12/21 13:17 98 H 137/74 01/12/21 13:14 98 H 98 01/12/21 13:09 98 H 98 01/12/21 13:04 99 H 98 01/12/21 12:59 94 01/12/21 12:54 100 H 98 01/12/21 12:49 104 H 98 01/12/21 12:47 99 H 126/67 01/12/21 12:44 101 H 99 01/12/21 12:39 104 H 98 01/12/21 12:34 101 H 98 01/12/21 12:29 102 H 98 01/12/21 12:24 101 H 98 01/12/21 12:19 103 H 97 01/12/21 12:17 100 H 128/62 01/12/21 12:14 100 H 98 01/12/21 12:13 98.3 F 102 H 16 129/63 98 01/12/21 12:09 102 H 99 01/12/21 12:05 99 H 129/63 01/12/21 12:04 99 H 99 01/12/21 11:59 100 H 99 01/12/21 11:54 103 H 98 01/12/21 11:49 101 H 99 01/12/21 11:47 100 H 135/75 01/12/21 11:44 103 H 99 01/12/21 11:39 102 H 99 01/12/21 11:34 104 H 98 01/12/21 11:29 102 H 98 01/12/21 11:24 94 H 98 01/12/21 11:19 104 H 98 01/12/21 11:17 99 H 137/75 01/12/21 11:14 103 H 98 01/12/21 11:09 100 H 98 01/12/21 11:04 101 H 99 01/12/21 10:59 102 H 98 01/12/21 10:54 101 H 98 01/12/21 10:49 103 H 98 01/12/21 10:47 101 H 140/76 01/12/21 10:44 104 H 98 01/12/21 10:39 104 H 97 01/12/21 10:34 106 H 98 01/12/21 10:29 108 H 98 01/12/21 10:24 108 H 97 01/12/21 10:19 106 H 98 01/12/21 10:17 105 H 135/71 01/12/21 10:14 106 H 98 01/12/21 10:09 106 H 97 01/12/21 10:04 111 H 97 01/12/21 10:03 113 H 137/68 01/12/21 09:59 104 H 97 01/12/21 09:54 108 H 97 01/12/21 09:49 108 H 97 01/12/21 09:47 110 H 137/68 01/12/21 09:44 110 H 97 01/12/21 09:39 110 H 97 01/12/21 09:34 112 H 97 01/12/21 09:29 109 H 97 01/12/21 09:24 109 H 97 01/12/21 09:19 109 H 98 01/12/21 09:17 107 H 137/67 01/12/21 09:14 108 H 98 01/12/21 09:09 109 H 98 01/12/21 09:04 106 H 98 01/12/21 08:59 110 H 97 01/12/21 08:54 112 H 96 01/12/21 08:49 106 H 96 01/12/21 08:47 98.3 F 111 H 16 123/73 123/73 01/12/21 08:44 107 H 97 01/12/21 08:39 104 H 97 01/12/21 08:34 107 H 96 01/12/21 08:29 107 H 96 01/12/21 08:24 104 H 96 01/12/21 08:19 103 H 96 01/12/21 08:17 101 H 141/75 01/12/21 08:14 103 H 97 01/12/21 08:09 103 H 97 01/12/21 08:04 105 H 98 01/12/21 07:59 104 H 97 01/12/21 07:54 107 H 98 01/12/21 07:49 105 H 98 Intake and Output 01/12/21 01/13/21 01/13/21 22:59 06:59 14:59 Intake Total 300 Output Total 800 Balance -500 Intake: Oral 300 Output: Urine 800 Indwelling Catheter 800 Other: Total, Intake Amount 300 Total, Output Amount 200 - Exam Breasts: Present: normal, Cardiovascular: Present: Regular rate Lungs: Present: Normal air movement Abdomen: Present: normal appearance, soft Extremities: Present: normal Incision: Present: normal, dry, intact, dressed (instructed to remove now) - Labs Labs: Abnormal lab results 01/12/21 Range/Units 14:38 Magnesium 6.10 H (1.7-2.3) mg/dL
[2021-01-14] MEDS: HYDROcodone/ACETAMINOPHEN 5-325 MG TAB PO PRN ×2 (05:29→10:33)
--- NOTE | 2021-01-14 07:53 | Discharge Summary ---
Providers - Providers Date of Admission: 01/11/21 12:34 Date of discharge: 01/14/21 (pt desires d/c home) Attending physician: KAJAL BRUCE Primary care physician: KAJAL BRUCE Hospitalization Reason for admission: induction of labor, IUP at term Delivery: Procedure: section, primary low transverse Episiotomy: none Laceration: none Incision: normal, dry, intact Other procedures: none complications: none Discharge diagnosis: IUP at term delivered [place] baby: male Condition at discharge: Good Disposition: DC-01 TO HOME OR SELFCARE Plan - Discharge Medications Prescriptions: Docusate Sodium [Colace] 100 mg PO BID PRN #60 capsule PRN Reason: Constipation Lidocain2.5%/Prilocai2.5% [Emla] 2 gm TP ONCE #1 tube Ferrous Sulfate [Feosol 325 MG tab] 325 mg PO QDAY #60 tablet labetaloL [Labetalol 100mg TAB] 200 mg PO BID #60 tablet Ibuprofen [Motrin 800 MG tab] 800 mg PO Q8HR PRN #30 tablet PRN Reason: Pain, Moderate (4-6) oxyCODONE /ACETAMINOPHEN [Percocet 5/325] 1 tab PO Q4HR #30 tab - Provider Discharge Summary Activity: routine, no sex for 6 weeks, no heavy lifting 4 weeks, no strenuous exercise Diet: routine Instructions: routine Additional instructions: [] Smoking cessation referral if applicable(refer to patient education folder for contact #) [] Refer to [facility]'s [facility] Booklet Call your doctor immediately for: * Fever > 100.5 * Heavy vaginal bleeding ( >1 pad per hour) * Severe persistent headache * Shortness of breath * Reddened, hot, painful area to leg or breast * Drainage or odor from incision. * Keep incision clean and dry at all times and follow doctor's instructions regarding bathing/showering Congratulations!! Please call [phone] and make an appointment in 1 week for your incision check and baby's circumcision. Thank you! - Follow up plan Follow up: KAJAL BRUCE MD [Primary Care Provider] - 7 Days Forms: [facility] Discharge Summary
[2021-01-14 16:53] VITALS: BP 144/91
== END 2021-01-14 16:30 | disposition home or self-care (01) | DRG 788 ==
LOC: TRG 10:52 → APU 10:53 → TRG 12:32 → LD 12:34 → UNDOADMIN 17:51 → LD 17:51 → OB 01-12 20:59
PROVIDERS: ADMIT Obstetrics & Gynecology; ATTEND Obstetrics & Gynecology
PROC: 10D00Z1 Extraction of Products of Conception, Low, Open Approach (ICD-10-PCS; principal; 2021-01-11)
PROC: 10H07YZ Insertion of Other Device into Products of Conception, Via Natural or Artificial Opening (ICD-10-PCS; 2021-01-11)
PROC: 3E0T3BZ Introduction of Anesthetic Agent into Peripheral Nerves and Plexi, Percutaneous Approach (ICD-10-PCS; 2021-01-12)
PROC: 3E0234Z Introduction of Serum, Toxoid and Vaccine into Muscle, Percutaneous Approach (ICD-10-PCS; 2021-01-12)
DX: O13.4 Gestational [pregnancy-induced] hypertension without significant proteinuria, complicating childbirth (principal); O99.344 Other mental disorders complicating childbirth; O75.0 Maternal distress during labor and delivery; O99.214 Obesity complicating childbirth; O45.93 Premature separation of placenta, unspecified, third trimester; O99.02 Anemia complicating childbirth; O62.2 Other uterine inertia; D57.3 Sickle-cell trait; F31.9 Bipolar disorder, unspecified; O76 Abnormality in fetal heart rate and rhythm complicating labor and delivery; Z3A.40 40 weeks gestation of pregnancy; Z3A.39 39 weeks gestation of pregnancy; Z37.0 Single live birth; Z20.822 Contact with and (suspected) exposure to COVID-19; Z23 Encounter for immunization
CPT/HCPCS: 36415; 81001; 82565; 83615; 83735; 84450; 84460; 84550; 85014; 85018; 85025; 86592; 86850; 86900; 86901; 88307; 96360; 99211; G0378; G0463; J0360; J0690; J1100; J1885; J2370; J2405; J2590; J3010; J3475; J7120; U0003